=== PATIENT | female | born 1970 | race Caucasian/White ===

== ENCOUNTER 2019-09-21 20:52 | Emergency (ER) | payer MEDICAID ==
[2019-09-21] MEDS ORDERED: Ondansetron 4 MG/2 ML SDV IVPUSH ONE (21:41)
[2019-09-21] MEDS ORDERED: fentaNYL 100 MCG/2 ML SDV IVPUSH ONE (21:41)
[2019-09-21] MEDS ORDERED: Lactated Ringers 1,000 ML IV ONE (21:41)
--- NOTE | 2019-09-21 21:58 | EDM.PDOC ---
ED HPI GENERAL MEDICAL PROBLEM - General Chief Complaint: Gastrointestinal Problem Stated Complaint: PAIN IN BACK OF NECK/HEAD, VOMITING Time Seen by Provider: 09/21/19 21:50 Source of Information: Reports: Patient, Family, RN Notes Reviewed History Limitations: Reports: No Limitations - History of Present Illness INITIAL COMMENTS - FREE TEXT/NARRATIVE: 48-year-old female presents emergency department the complaint of headache with nausea and vomiting, she states she was feeling fine earlier today then sudden onset sharp pain in the back of her head produced nausea and vomiting she denies any photophobia no phonophobia does not have a history of migraines did have a headache about 1 week ago which resolved with Tylenol. She denies any fevers shortness of breath chest pain Posterior Headache Pain Score (Numeric/FACES): 10 - Related Data Allergies Allergy/AdvReac Type Severity Reaction Status Date / Time amoxicillin Allergy Rash Verified 09/21/19 21:23 Home Meds: Home Meds Excedrin Migraine 1 tab PO ASDIRECTED 09/21/19 [History] Past Medical History - Infectious Disease History Infectious Disease History: Reports: Chicken Pox - Past Surgical History HEENT Surgical History: Reports: Other (See Below) Other HEENT Surgeries/Procedures: right eye surgery Female Surgical History: Reports: Hysterectomy Social & Family History - Tobacco Use Smoking Status *Q: Never Smoker Second Hand Smoke Exposure: No - Caffeine Use Caffeine Use: Reports: Soda - Recreational Drug Use Recreational Drug Use: No ED ROS GENERAL - Review of Systems Review Of Systems: See Below Constitutional: Reports: No Symptoms HEENT: Reports: No Symptoms Respiratory: Reports: No Symptoms Cardiovascular: Reports: No Symptoms GI/Abdominal: Reports: Nausea, Vomiting. Denies: Abdominal Pain Musculoskeletal: Reports: No Symptoms Skin: Reports: No Symptoms Neurological: Reports: Headache ED EXAM, NEURO - Physical Exam Exam: See Below Exam Limited By: No Limitations General Appearance: Alert, Mild Distress Eye Exam: Bilateral Eye: EOMI, Normal Fundi, Normal Inspection, PERRL Neck: Normal Inspection, Supple, Non-Tender, Full Range of Motion Respiratory/Chest: No Respiratory Distress, Lungs Clear, Normal Breath Sounds, No Accessory Muscle Use, Chest Non-Tender Cardiovascular: Regular Rate, Rhythm, No Murmur GI/Abdominal: Soft, Non-Tender Course - Vital Signs Last Recorded V/S: Last Vital Signs Temp 96.5 F 09/21/19 21:25 Pulse 72 09/21/19 23:24 Resp 12 09/21/19 23:24 BP 216/113 H 09/21/19 23:24 Pulse Ox 98 09/21/19 23:24 - Orders/Labs/Meds Orders: Active Orders 24 hr Category Date Time Status Labetalol [Normodyne] Med 09/21/19 23:37 Once 20 mg IVPUSH ONETIME ONE Medication Orders Labetalol HCl (Normodyne) 20 mg IVPUSH ONETIME ONE; Protocol Stop: 09/21/19 23:38 Labs: Laboratory Tests 09/21/19 09/21/19 Range/Units 22:11 22:11 WBC 10.1 (4.5-11.0) K/uL RBC 4.95 (3.30-5.50) M/uL Hgb 14.1 (12.0-15.0) g/dL Hct 41.3 (36.0-48.0) % MCV 83 (80-98) fL MCH 29 (27-31) pg MCHC 34 (32-36) % Plt Count 320 (150-400) K/uL Neut % (Auto) 72 H (36-66) % Lymph % (Auto) 20 L (24-44) % [place] % (Auto) 7 H (2-6) % Eos % (Auto) 1 L (2-4) % Baso % (Auto) 0 (0-1) % Sodium 139 L (140-148) mmol/L Potassium 3.5 L (3.6-5.2) mmol/L Chloride 103 (100-108) mmol/L Carbon Dioxide 25 (21-32) mmol/L Anion Gap 14.5 H (5.0-14.0) mmol/L BUN 14 (7-18) mg/dL Creatinine 0.8 (0.6-1.0) mg/dL Est Cr Clr Drug Dosing 83.63 mL/min Estimated GFR (MDRD) > 60 (>60) Glucose 138 H (74-106) mg/dL Calcium 8.4 L (8.5-10.1) mg/dL Meds: Medications Generic Name Dose Route Start Last Admin Trade Name Freq PRN Reason Stop Dose Admin Labetalol HCl 20 mg 09/21/19 23:37 Normodyne IVPUSH 09/21/19 23:38 ONETIME ONE Protocol Discontinued Medications Generic Name Dose Route Start Last Admin Trade Name Aneudy PRN Reason Stop Dose Admin Fentanyl 50 mcg 09/21/19 21:41 09/21/19 21:48 Sublimaze IVPUSH 09/21/19 21:42 50 mcg ONETIME ONE Administration Hydromorphone HCl 1 mg 09/21/19 22:45 09/21/19 22:50 Dilaudid IVPUSH 09/21/19 22:46 1 mg ONETIME ONE Administration Lactated Ringer's 1,000 mls @ 999 mls/hr 09/21/19 21:41 09/21/19 21:47 Ringers, Lactated IV 09/21/19 22:41 999 mls/hr BOLUS ONE Administration Ondansetron HCl 4 mg 09/21/19 21:41 09/21/19 21:48 Zofran IVPUSH 09/21/19 21:42 4 mg ONETIME ONE Administration Departure - Departure Time of Disposition: 23:44 Disposition: DC/Tfer to Acute Hospital 02 Condition: Serious Clinical Impression: Subarachnoid hemorrhage - Discharge Information Referrals: PCP,None [Primary Care Provider] - Forms: ED Department Discharge Sepsis Event Note - Evaluation Sepsis Screening Result: No Definite Risk - Focused Exam Vital Signs: Vital Signs Temp Pulse Resp BP Pulse Ox 09/21/19 23:24 72 12 216/113 H 98 09/21/19 22:50 71 197/105 H 09/21/19 22:39 197/105 H 09/21/19 22:19 73 14 205/101 H 92 L 09/21/19 21:55 195/102 H 09/21/19 21:25 96.5 F 76 18 207/114 H 93 L 09/21/19 21:19 96.5 F 76 18 207/114 H 93 L Date Exam was Performed: 09/21/19 Time Exam was Performed: 23:42 - My Orders Last 24 Hours: My Active Orders 09/21/19 23:37 Labetalol [Normodyne] 20 mg IVPUSH ONETIME ONE - Assessment/Plan Last 24 Hours: My Active Orders 09/21/19 23:37 Labetalol [Normodyne] 20 mg IVPUSH ONETIME ONE Plan: Assessment Acuity = acute Site and laterality = subarachnoid hemorrhage Etiology = unknown Manifestations = headache Location of injury = Home Lab values = CBC, BMP unremarkable CT scan describes subarachnoid hemorrhage Plan Called and discussed the case with neurosurgery and ICU at [facility] at [address] Dr[address] Shaikh Ewing excepted the patient in transport asked to give nimodipine unfortunately we do not have that medication therefore she was given labetalol 20 mg prior to departure with the goal of keeping her blood pressure under 160 This note was dictated using [employer] voice recognition software please call with any questions on syntax or grammar.
[2019-09-21] MEDS ORDERED: HYDROmorphone 1 MG/ML Syringe IVPUSH ONE (22:45)
--- NOTE | 2019-09-21 23:25 | CRLCT ---
INDICATION: Headache. Nausea and vomiting TECHNIQUE: CT head without contrast. COMPARISON: None available FINDINGS: The ventricles and sulci are within normal limits for the patient`s age. There is large subarachnoid hemorrhage near the skullbase, opacifying the basilar cisterns, sylvian fissures and regional sulci, as well as extension of blood products anterior to the brainstem and proximal cervical cord. Small blood is seen in the lateral ventricular frontal horns near the foramina of [place]. An ill-defined density along the posterior aspect of the 4th ventricle could represent intraventricular blood products. There is no mass effect or midline shift. There is no loss of rodriguez-white differentiation. No acute calvarial fracture is seen. There is mild mucosal thickening in the left frontal sinus. There is apparent partial opacification of a few mastoid air cells. The visualized orbits are within normal limits. IMPRESSION: Large subarachnoid hemorrhage with intraventricular extension. The findings were discussed with Officer, by phone, on 09/21/2019 at 11:17 p.m.. Dictated by Lawrence Peralta MD @ 09/21/2019 11:20:42 PM Please note that all CT scans at this facility use dose modulation, iterative reconstruction, and/or weight-based dosing when appropriate to reduce radiation dose to as low as reasonably achievable. Dictated by: Lawrence Peralta MD @ 09/21/2019 23:25:16 (Electronically Signed)
[2019-09-21] MEDS ORDERED: Labetalol 100 MG/20 ML MDV IVPUSH ONE (23:37)
[2019-09-21] MEDS ORDERED: Labetalol 20 MG/4 ML Syringe ONE (23:42)
== END 2019-09-21 23:55 ==
LOC: JP.ED 20:52
DX: I60.9 Nontraumatic subarachnoid hemorrhage, unspecified (principal); Z88.1 Allergy status to other antibiotic agents
CPT/HCPCS: 36415; 70450; 80048; 85025; 96361; 96374; 96375; 99285; J1170; J2405; J3010; J3490; J7120

== ENCOUNTER 2024-03-15 07:34 | Emergency (ER) | payer MEDICAID, MEDICARE ==
[2024-03-15] MEDS ORDERED: Naloxone 0.4 MG/ML SDV IVPUSH PRN (07:51)
[2024-03-15 07:59] LABS: BASOPHILS ABSOLUTE AUTO 0.03 K/uL (0.00-0.10); BASOPHILS PERCENT AUTO 0.4 % (0.1-1.3); EOSINOPHILS PERCENT AUTO 0.2 % (0.0-5.4); HEMATOCRIT 39.7 % (34.3-46.0); HEMOGLOBIN 13.1 g/dL (11.2-15.5); IMMATURE GRAN PERCENT AUTO 1.2 % (0.0-0.7); LYMPHOCYTES ABSOLUTE AUTO 1.24 K/uL (0.8-3.3); LYMPHOCYTES PERCENT AUTO 14.7 % (11.4-47.7); MEAN CORPUSCULAR HEMOGLOBIN 27.3 pg (31.6-35.5); MEAN CORPUSCULAR VOLUME 82.9 fL (81.4-99.0); MONOCYTES ABSOLUTE AUTO 0.23 K/uL (0.20-0.90); MONOCYTES PERCENT AUTO 2.7 % (3.3-12.6); NEUTROPHILS ABSOLUTE AUTO 6.82 K/uL (1.0-7.6); NEUTROPHILS PERCENT AUTO 80.8 % (40.0-78.1); PLATELET COUNT,PLT 278 K/uL (130-375); RED BLOOD CELL COUNT 4.79 M/uL (3.77-5.24); WHITE BLOOD CELL COUNT,WBC 8.4 K/uL (3.2-11.0)
[2024-03-15 08:00] LABS: EOSINOPHILS ABSOLUTE AUTO 0.02 K/uL (0.00-0.40)
[2024-03-15 08:16] LABS: INR 2.4; PROTHROMBIN TIME 23.5 sec (9.2-10.6)
[2024-03-15 08:25] LABS: A/G RATIO 0.7 (1.2-2.2); ALANINE AMINOTRANSFERASE,ALT 48 U/L (12-78); ALBUMIN 3.1 g/dL (3.4-5.0); ALKALINE PHOSPHATASE 103 U/L (46-116); ANION GAP 7.4 mmol/L (5.0-14.0); ASPARTATE AMNIOTRANSFERASE,AST 23 U/L (15-37); BILIRUBIN TOTAL 0.3 mg/dL (0.2-1.0); BLOOD UREA NITROGEN,BUN 13 mg/dL (7-18); CALCIUM 8.7 mg/dL (8.5-10.1); CARBON DIOXIDE,CO2 28 mmol/L (21-32); CHLORIDE,CL 105 mmol/L (100-108); CREATININE 0.7 mg/dL (0.6-1.0); EST CRCL DRUG DOSING (CG) 93.76 mL/min; ESTIMATED GFR 103 mL/min (>60); GLUCOSE RANDOM 122 mg/dL (74-106); POTASSIUM,K 4.4 mmol/L (3.6-5.2); PROTEIN TOTAL,TP 7.4 g/dL (6.4-8.2); SODIUM,NA 140 mmol/L (140-148)
[2024-03-15] MEDS: Sodium Chloride 0.9% 1,000 ML IV SCH (08:25)
[2024-03-15] MEDS: Ondansetron 4 MG/2 ML SDV IVPUSH ONE (08:26)
[2024-03-15] MEDS: HYDROmorphone 0.5 MG/0.5 ML Syringe IVPUSH ONE (08:28)
[2024-03-15 08:46] LABS: APPEARANCE,URINE CLOUDY (CLEAR); BILIRUBIN,URINE NEGATIVE (NEGATIVE); COLOR,URINE YELLOW (YELLOW); GLUCOSE,URINE NEGATIVE (NEGATIVE); KETONES,URINE NEGATIVE (NEGATIVE); LEUKOCYTE ESTERASE,URINE NEGATIVE (NEGATIVE); NITRITE,URINE POSITIVE (NEGATIVE); OCCULT BLOOD,URINE LARGE (NEGATIVE); PROTEIN,URINE 100 mg/dL (NEGATIVE)
[2024-03-15 08:48] LABS: AMPHETAMINES SCREEN, URINE NEGATIVE (NEGATIVE); BARBITURATE SCREEN,URINE NEGATIVE (NEGATIVE); BENZODIAZEPINES SCREEN,URINE NEGATIVE (NEGATIVE); METHADONE SCREEN, URINE NEGATIVE (NEGATIVE); METHAMPHETAMINES SCREEN, URINE NEGATIVE (NEGATIVE); OXYCODONE SCREEN,URINE NEGATIVE (NEGATIVE); PROPOXYPHENE SCREEN,URINE NEGATIVE (NEGATIVE); THC SCREEN,URINE 50 NG/ML NEGATIVE (NEGATIVE)
[2024-03-15 08:54] LABS: AMORPHOUS SEDIMENT,URINE NOT SEEN; BACTERIA,URINE MANY; EPITHELIAL CELLS,URINE FEW; MUCUS,URINE FEW; RBC,URINE 20-30 (0-5)
== END 2024-03-15 10:40 | disposition home or self-care (01) ==
LOC: JP.ED 07:34
DX: G44.209 Tension-type headache, unspecified, not intractable (principal); N39.0 Urinary tract infection, site not specified; Z90.710 Acquired absence of both cervix and uterus; Z79.899 Other long term (current) drug therapy; Z88.2 Allergy status to sulfonamides; Z88.0 Allergy status to penicillin
CPT/HCPCS: 36415; 70450; 80053; 80305; 81001; 83605; 84484; 85025; 85610; 87086; 87088; 87186; 93005; 93010; 96361; 96374; 96375; 99284; 99285; J1170; J2405; J7030

== ENCOUNTER 2024-07-08 16:51 | Emergency (ER) | payer MEDICARE, MEDICAID ==
[2024-07-08 19:03] LABS: INR 9.7
[2024-07-08 19:11] LABS: BASOPHILS ABSOLUTE AUTO 0.03 K/uL (0.00-0.10); BASOPHILS PERCENT AUTO 0.7 % (0.1-1.3); EOSINOPHILS PERCENT AUTO 2.2 % (0.0-5.4); HEMATOCRIT 36.1 % (34.3-46.0); HEMOGLOBIN 11.8 g/dL (11.2-15.5); IMMATURE GRAN ABSOLUTE AUTO 0.01 K/uL (0.00-0.23); IMMATURE GRAN PERCENT AUTO 0.2 % (0.0-0.7); LYMPHOCYTES ABSOLUTE AUTO 1.83 K/uL (0.8-3.3); LYMPHOCYTES PERCENT AUTO 40.9 % (11.4-47.7); MEAN CORPUSCULAR HGB CONC 32.7 g/dL (31.6-35.5); MEAN CORPUSCULAR VOLUME 88.7 fL (81.4-99.0); MONOCYTES ABSOLUTE AUTO 0.42 K/uL (0.20-0.90); MONOCYTES PERCENT AUTO 9.4 % (3.3-12.6); NEUTROPHILS ABSOLUTE AUTO 2.08 K/uL (1.0-7.6); NEUTROPHILS PERCENT AUTO 46.6 % (40.0-78.1); PLATELET COUNT,PLT 126 K/uL (130-375); RED BLOOD CELL COUNT 4.07 M/uL (3.77-5.24); WHITE BLOOD CELL COUNT,WBC 4.5 K/uL (3.2-11.0)
[2024-07-08] MEDS: Phytonadione 5 MG Tab PO ONE (20:24)
== END 2024-07-08 21:58 ==
LOC: JP.ED 16:51
DX: K92.2 Gastrointestinal hemorrhage, unspecified (principal); Z90.710 Acquired absence of both cervix and uterus; Z79.82 Long term (current) use of aspirin; Z79.01 Long term (current) use of anticoagulants; Z88.1 Allergy status to other antibiotic agents; Z88.2 Allergy status to sulfonamides
CPT/HCPCS: 36415; 85025; 85610; 99284; A9270

== ENCOUNTER 2024-11-04 21:26 | Emergency (ER) | payer MEDICARE, MEDICAID ==
[2024-11-04 23:26] LABS: APPEARANCE,URINE CLOUDY (CLEAR); BILIRUBIN,URINE MODERATE (NEGATIVE); COLOR,URINE BROWN (YELLOW); GLUCOSE,URINE NEGATIVE (NEGATIVE); KETONES,URINE TRACE mg/dL (NEGATIVE); LEUKOCYTE ESTERASE,URINE TRACE (NEGATIVE); NITRITE,URINE POSITIVE (NEGATIVE); OCCULT BLOOD,URINE LARGE (NEGATIVE); PH,URINE 5.5 (5.0-8.0); PROTEIN,URINE >=300 mg/dL (NEGATIVE)
[2024-11-04 23:33] LABS: AMORPHOUS SEDIMENT,URINE NOT SEEN; BACTERIA,URINE MANY; EPITHELIAL CELLS,URINE RARE; MUCUS,URINE NOT SEEN; RBC,URINE >100 (0-5)
== END 2024-11-05 00:03 | disposition home or self-care (01) ==
LOC: JP.ED 21:26
DX: N39.0 Urinary tract infection, site not specified (principal); L30.8 Other specified dermatitis; Z88.0 Allergy status to penicillin; Z88.2 Allergy status to sulfonamides; Z79.82 Long term (current) use of aspirin; Z79.01 Long term (current) use of anticoagulants; Z79.899 Other long term (current) drug therapy; Z90.710 Acquired absence of both cervix and uterus
CPT/HCPCS: 81001; 99284